=== PATIENT | female | born 1975 | race Caucasian/White ===

== ENCOUNTER 2021-04-26 14:34 | Emergency (ER) | payer BC, SELFPAY ==
[2021-04-26] MEDS: EPINEPHrine HCL INJ 1 MG/ML AMPUL 0.3 MG SUB-Q (14:48)
[2021-04-26] MEDS: methylPREDNISolone SOD SUCC 125 MG VIAL IV PUSH (14:51)
[2021-04-26 14:53] VITALS: BP 171/89; PULSE 116; RESP 24; TEMP 36.6; O2SAT 100
--- NOTE | 2021-04-26 15:06 | ED.GENADULT ---
HPI - General Adult General Chief complaint: Allergic Reaction Stated complaint: ALLERGIC REACTION Time Seen by Provider: 04/26/21 14:36 Source: patient Mode of arrival: ambulatory Limitations: no limitations History of Present Illness HPI narrative: 45 y/o female. PMH includes: None reported. Presents to [facility] today with acute complaints of possible allergic reaction to Randy seeds . Pt reports to have consumed food that was topped with Randy Seeds in the past 1/2 hour. She then states her tongue felt itchy , and she began to feel short of breath. She reports no additional known food allergens. She had taken 50 mg of oral Benadryl MANAGER ERP. No dysphagia or involuntary drooling. No wheezing or stridor. Client is on her cell phone, speaking in full fluent sentences at this time. She is without additional acute complaints of illness upon exam. Related Data Allergies Allergy/AdvReac Type Severity Reaction Status Date / Time hydrocodone Allergy Severe REACTION Verified 03/12/13 06:55 TO CODEINE ibuprofen Allergy Severe BLOTCHEY Verified 03/12/13 06:55 RED SPOTS codeine AdvReac Severe N/V Verified 03/12/13 06:55 ??NAUSEA MED Allergy Severe HALLUCINATI Uncoded 11/01/07 10:20 ONS ANESTHESIA? Allergy Severe MUSCLE Uncoded 11/01/07 10:20 TENSENESS, SPASMS YEAST INFECTION MED Allergy Severe WORSE VAG Uncoded 11/01/07 10:20 SWELLING Review of Systems Review of Systems: Narrative: CONSTITUTIONAL: Denies fever, chills, sweats. EYES: Denies visual changes, redness, discharge. ENT: Denies rhinorrhea, congestion, sore throat, otalgia. CARDIOVASCULAR: Denies chest pain, palpitations, edema. RESPIRATORY: Positive dyspnea. No wheezing or cough GASTROINTESTINAL: Denies abdominal pain, nausea, vomiting, diarrhea. GENITOURINARY: Denies dysuria, hematuria, abnormal discharge SKIN: Denies rash or itching. MUSCULOSKELETAL: Denies acute back pain, joint pain, or myalgia. NEUROLOGIC: Denies numbness, or focal weakness. PSYCHIATRIC: Denies anxiety or depression. All systems reviewed & are unremarkable except as noted in HPI and below Exam Narrative: Exam Narrative: GENERAL: This is a well-nourished, well-developed patient, in no apparent distress. HEAD: normocephalic, atraumatic. EYES: PERRL. Sclera clear/white. Vision is grossly intact. EARS: External ears normal, auditory canals clear and without drainage, TMs normal without perforation. Hearing grossly intact. NOSE: External nose normal with no obvious nasal discharge, nares without redness, no rhinorrhea. THROAT: Mucous membranes moist, posterior pharynx clear. NECK: Neck supple, non-tender without lymphadenopathy, masses or thyromegaly. CARDIOVASCULAR: Regular rate and rhythm without murmurs, gallops, or rubs. RESPIRATORY: Clear to auscultation. Breath sounds equal bilaterally. No wheezes, rales, or rhonchi. GASTROINTESTINAL: Abdomen soft, non-tender, nondistended. Bowel sounds are active. No hepato-splenomegaly, or palpable masses. No guarding. SKIN: warm, intact with no suspicious lesions or rash, good texture and turgor. NEURO: awake, alert, and oriented to person, place and time. There were no obvious focal neurologic abnormalities. Steady gait EXTREMITIES: Normal range of motion. No edema. No calf tenderness. Negative Homans sign bilaterally. BACK: Nontender without deformity or crepitance. No flank tenderness. NEURO: Alert and oriented x4, GCS 15. Cranial nerves II through XII grossly intact. No focal neurological deficits. Normal muscle strength and tone. Normal deep tendon reflexes. Negative Babinski, normal finger to nose coordination he had normal heel to mendez glide. Speech is clear. Normal gait. Negative Romberg and no pronator drift. Course Course Emergency Course: -IV Insertion. -Solumedrol 125 IV. -Epinephrine 0.3mg SQ. -Cardiac, oximetry, and airway monitoring continuous. -PT took 50 mg PO Benadryl MANAGER ERP. -Monitor progression and
--- NOTE | 2021-04-26 15:10 | PC.NURSE ---
At 1450 patient doing well. Heart rate is now 89. Sats continue to be 100%. Talks in full sentences. No resp. distress.
--- NOTE | 2021-04-26 15:14 | PC.NURSE ---
Continues to do well Heart rate 78 sats 100%. No distress.
--- NOTE | 2021-04-26 15:36 | PC.NURSE ---
Talking with friend. Full sentences. No SOB. Color good. No distress. Sats 100%
== END 2021-04-26 15:53 | disposition home or self-care (01) ==
PROVIDERS: Emergency Provider Nurse Practitioner Adult Health
DX: R06.02 Shortness of breath (principal); T78.1XXA Other adverse food reactions, not elsewhere classified, initial encounter
CPT/HCPCS: 96372; 96374; 99204; G0463; J0171; J2930

== ENCOUNTER 2023-12-14 01:37 | Day surgery (SDC) | payer BC, MEDICAID, SELFPAY ==
[2023-10-13 10:30] VITALS: BMI 33.5
--- NOTE | 2023-12-11 10:51 | SUR.PREOP ---
Patient called regarding upcoming procedure. Reviewed preop instructions, appointment times, and procedure prep.
--- NOTE | 2023-12-11 13:58 | PM.HPGS ---
History of Present Illness History of Present Illness Consent: Risks, benefits, and alternatives have been discussed and questions answered. Patient agrees to proceed with procedure. Chief complaint: neoplasm screening Narrative: Alley Merchant is a 48 year old female Referred for colon cancer screening. Review of Systems Review of Systems: All systems reviewed & are unremarkable except as noted in HPI and below PMFSH Surgical History Surgical History H/O breast biopsy 2020 stereotactic bx of rt breast negative H/O eye surgery xs 2 History of cholecystectomy History of tonsillectomy History of tubal ligation [place] teeth removed Family History Family History Father Hypertension Mother Hypertension Panic attack Grandparent Cerebrovascular accident Paget's disease of femur Family history of cancer Social History Social History Smoking status: Former smoker Tobacco type: cigarettes Alcohol intake: current Drinks per week: 2 Substance use type: does not use Living arrangements: with family Spiritual care concerns: No Meds Home Medications and Allergies Home Medications Medication Instructions Recorded Confirmed Type norethindrone 1 mg-ethinyl 1 tablet PO DAILY #84 tabs 04/30/22 11/17/23 Rx estradiol 20 mcg (21)-iron 75 mg (7) tablet (Loestrin Fe 11/21 (28-Day)) escitalopram oxalate 5 mg tablet 5 mg PO DAILY 10/13/23 11/17/23 History fexofenadine 180 mg tablet 180 mg PO DAILY 10/13/23 11/17/23 History (Allergy Relief (fexofenadine)) vitamin B complex 1 cap PO DAILY 10/13/23 11/17/23 History Allergies Allergy/AdvReac Type Severity Reaction Status Date / Time hydrocodone Allergy Severe REACTION Verified 11/17/23 10:55 TO CODEINE ibuprofen Allergy Severe BLOTCHEY Verified 11/17/23 10:55 RED SPOTS codeine AdvReac Severe N/V Verified 11/17/23 10:55 Latex, Natural Rubber AdvReac Rash Verified 11/17/23 10:55 ??NAUSEA MED Allergy Severe HALLUCINATI Uncoded 11/17/23 10:55 ONS ANESTHESIA? Allergy Severe MUSCLE Uncoded 11/17/23 10:55 TENSENESS, SPASMS YEAST INFECTION MED Allergy Severe WORSE VAG Uncoded 11/17/23 10:55 SWELLING lexis seed Allergy Anaphylaxis Uncoded 11/17/23 10:55 Exam Const: General: alert Orientation/consciousness: patient oriented x3 Resp: Auscultation: clear to auscultation bilaterally Cardio: Rhythm: regular rhythm GI: GI Palp: Yes Soft to palpation and No Tenderness to palpation present (GI) Neuro: General: patient oriented x3 Assessment and Plan Assessment and plan (1) Colon cancer screening: Code(s): Z12.11 - Encounter for screening for malignant neoplasm of colon Status: Acute Assessment and Plan: Colonoscopy with possible biopsy or polypectomy or cautery or injection of substances.
[2023-12-14 09:57] VITALS: BP 118/74; PULSE 80; RESP 17; TEMP 36.6; O2SAT 98
[2023-12-14] MEDS: LACTATED RINGERS 1,000 ML 150 ML IV CONT (10:08)
--- NOTE | 2023-12-14 10:30 | WPDANESEPPF ---
Anes - Initial Pre Proc Eval Procedure: Operation Date: 12/14/23 11:00 Proposed Procedures p Screening Colonoscopy - Mike Grissom MD Date/Time: 12/14/23 10:30 Surgeon: Mike Grissom MD Pre Op Diagnosis: neoplasm screening Patient Data Age: 48 Gender: F Height: 1.63 m Weight: 91.1 kg Last Vital Signs Temp 98 F 12/14/23 09:57 Pulse 80 12/14/23 09:57 Resp 17 12/14/23 09:57 BP 118/74 12/14/23 09:57 Pulse Ox 98 12/14/23 09:57 O2 Del Method Room Air 12/14/23 09:57 Allergies Allergy/AdvReac Type Severity Reaction Status Date / Time hydrocodone Allergy Severe REACTION Verified 11/17/23 10:55 TO CODEINE ibuprofen Allergy Severe BLOTCHEY Verified 11/17/23 10:55 RED SPOTS codeine AdvReac Severe N/V Verified 11/17/23 10:55 Latex, Natural Rubber AdvReac Rash Verified 11/17/23 10:55 ??NAUSEA MED Allergy Severe HALLUCINATI Uncoded 11/17/23 10:55 ONS ANESTHESIA? Allergy Severe MUSCLE Uncoded 11/17/23 10:55 TENSENESS, SPASMS YEAST INFECTION MED Allergy Severe WORSE VAG Uncoded 11/17/23 10:55 SWELLING lexis seed Allergy Anaphylaxis Uncoded 11/17/23 10:55 Home Medications Medication Instructions Recorded Confirmed Type norethindrone 1 mg-ethinyl 1 tablet PO DAILY #84 tabs 04/30/22 11/17/23 Rx estradiol 20 mcg (21)-iron 75 mg (7) tablet (Loestrin Fe 11/21 (28-Day)) escitalopram oxalate 5 mg tablet 5 mg PO DAILY 10/13/23 11/17/23 History fexofenadine 180 mg tablet 180 mg PO DAILY 10/13/23 11/17/23 History (Allergy Relief (fexofenadine)) vitamin B complex 1 cap PO DAILY 10/13/23 11/17/23 History Patient hx anesthesia problems: none Family hx anesthesia problems: none Results Review: All pre-operative results and documents have been reviewed as part of the pre-operative evaluation. [facility] Surgical History Surgical History (Updated 10/29/23 @ 08:19 by Yamileth Carter MA) H/O breast biopsy 2020 stereotactic bx of rt breast negative H/O eye surgery xs 2 History of cholecystectomy History of tonsillectomy History of tubal ligation [place] teeth removed Family History Family History (Updated 10/29/23 @ 08:16 by Yamileth Carter MA) Father Hypertension Mother Hypertension Panic attack Grandparent Cerebrovascular accident Paget's disease of femur Family history of cancer Social History Social History Smoking status: Former smoker Tobacco type: cigarettes Alcohol intake: current Drinks per week: 2 Substance use type: does not use Living arrangements: with family Spiritual care concerns: No Anes - Eval Final PreProcedure Day of Procedure 12/14/23 10:30 Patient weight: obese Heart: regular rate and rhythm Lungs: clear to auscultation Airway: Mallampati scale class II Neurological: alert and oriented Last oral intake: >/= 8 hours ASA classification: II Emergent: no Anesthetic plan: proceed Anesthesia type and monitoring: general GIVS and standard monitoring Results Review: All pre-operative results and documents have been reviewed as part of the pre-operative evaluation. Informed Consent: The patient's anesthetic plan and its attendant risks and benefits were discussed with the patient/family/POA. Questions were solicited and answers provided to the satisfaction of the patient/family/POA.
[2023-12-14 11:04] VITALS: BP 103/72; PULSE 79; RESP 20; O2SAT 97
[2023-12-14 11:14] VITALS: BP 114/75; PULSE 74; RESP 20; O2SAT 97
[2023-12-14 11:24] VITALS: BP 103/68; PULSE 84; RESP 20; O2SAT 97
== END 2023-12-14 11:34 | disposition home or self-care (01) ==
PROVIDERS: PCP Family Medicine; Visit Provider Internal Medicine Gastroenterology
PROC: 0DJD8ZZ Inspection of Lower Intestinal Tract, Via Natural or Artificial Opening Endoscopic (ICD-10-PCS; CPT 45378; principal; 2023-12-14 11:00)
DX: Z12.11 Encounter for screening for malignant neoplasm of colon (principal); E66.9 Obesity, unspecified; Z68.34 Body mass index [BMI] 34.0-34.9, adult; Z90.49 Acquired absence of other specified parts of digestive tract; Z98.890 Other specified postprocedural states; Z87.891 Personal history of nicotine dependence; Z82.49 Family history of ischemic heart disease and other diseases of the circulatory system; Z80.9 Family history of malignant neoplasm, unspecified
CPT/HCPCS: 45378; J2001; J2704; J7120

== ENCOUNTER → 2025-02-21 11:28 | Outpatient (REF) | payer BC, SELFPAY ==
--- OUTSIDE RECORDS SUMMARY | 2025-02-21 13:24 | XMS_ITS | Referral Summary ---
Author Organization [facility] Address [address] [place] [address] Care Team Providers Care Corrugator Operator Helper Name Role Phone Yennifer Francisco FOOD SAFETY SPECIALIST Primary Care Provider [phone] Helen Tompkins MD Unavailable [phone] Encounters Date Type Department Care Team Description 01/31/2025 Telephone [facility] [address] [address] Naheed Desai LPN 01/11/2025 Telephone [facility] Diabetes and Endocrinology [address] [place] [address] Nick Zuniga MD patient question 01/11/2025 Telephone [facility] Primary Care at [address] [address] Yennifer Francisco FOOD SAFETY SPECIALIST Medical Question/Miscellaneo us 12/09/2024 Telephone [facility] Primary Care at [address] [address] Yennifer Francisco, FOOD SAFETY SPECIALIST Forms Request 12/08/2024 Telephone [facility] Primary Care at [address] [address] Yennifer Francisco FOOD SAFETY SPECIALIST Forms Request 12/04/2024 10:45 AM CURING SUPERVISOR Office Visit [facility] Convenient Care at [address] [address] Ary Abel, AWA Acute left-sided low back pain without sciatica (Primary Dx); Acute viral syndrome from Last 3 Months Allergies Active Allergy Reactions Criticality Noted Date Comments Randy Seed Anaphylaxis High 07/28/2024 Codeine Nausea only,Vomiting Reaction: Nausea, Vomiting, , Flaxseed Stomach upset Low 07/28/2024 Fluconazole Swelling,Other (See comments) Reaction: swelling, pain, Ibuprofen Rash Medium Reaction: Rash, , Latex Rash Medium 04/14/2024 Metformin Nausea & Vomiting Low 04/25/2024 Miconazole Promethazine Other (See comments) Reaction: loopy head, Medications norethindrone ac-eth estradioL (MICROGESTIN 11/21) 1-20 mg-mcg per tablet TAKE 1 TABLET BY MOUTH DAILY CONTIUOUSLY Active fexofenadine (MARIBEL) 180 mg tablet Take 1 tablet (180 mg total) by mouth daily Active ergocalciferol, vitamin D2, 10 mcg (400 unit) tablet Take by mouth daily 9 Active multivitamin (MULTI-DAY ORAL) Take by mouth Active vitamin B complex with folic acid tablet Take by mouth daily Active lancets (OneTouch Delica Plus Lancet) 33 gauge misc USE DIRECTED DAILY 4 Active fluticasone propionate (FLONASE) 50 mcg/actuation nasal spray Administer 2 sprays into each nostril daily 3 each 4 4 Active Additional Information Patient not taking.Reported on 12/04/2024 escitalopram (LEXAPRO) 5 mg tablet Take 1 tablet (5 mg total) by mouth daily 90 tablet 3 4 Active azithromycin (ZITHROMAX) 250 mg tablet Take 2 tabs (500 mg) by mouth today, than 1 tab (250 mg) daily for 4 days. 6 tablet 4 Active Additional Information Patient not taking.Reported on 12/04/2024 blood-glucose sensor (Dekkuncom G7 Sensor) device Use for BG monitoring 3 each 5 Active Rybelsus 7 mg tabletIndicatio ns:Type 2 diabetes mellitus with hyperglycemia, without long-term current use of insulin (HCC) Take 1 tablet (7 mg total) by mouth daily 90 tablet 5 Active Active Problems Problem Noted Date Diagnosed Date Class 2 severe obesity due t o excess calories with serious comorbidity and body mass index (BMI) of 37.0 to 37.9 in adult 11/14/2024 Assessment & Plan (11/14/2024 4:16 PM CURING SUPERVISOR): Chronic, worsening Discussed about healthy lifestyle habits advise to work on healthy diet, avoid processed foods , increase vegetables and protein and cut back on carb portions and also avoid fruit juices and regular soda and desserts Increase physical activity , recommend at least 150 min of aerobic activity per week and include resistance training 2 x weekly - Rule out secondary causes of obesity - After the initial lab work will add low-dose dexamethasone suppression test Type 2 diabetes mellitus wit h hyperglycemia, without long-term current use of insulin 08/03/2024 Assessment & Plan (11/14/2024 4:16 PM CURING SUPERVISOR): Chronic, uncontrolled, slowly worsening Hemoglobin A1c 6.9% Goal A1c less than 6.5% Counseled on diet and exercise Advised to work on healthy fat loss goal Advised to see dietitian Patient willing to try oral GLP 1 agonist ( discussed mechanism of action, side effects benefits ) Start Rybelsus 3 mg oral daily ( patient does not want to go up on the dose very quickly ) Try to obtain patient's last eye exam copy Send prescription for freestyle Zoe 3 sensor Follow-up in 3 months Assessment & Plan (08/03/2024 7:45 AM CDT): This is a new problem that we discussed today. This is a chronic condition which is improved Is at goal for her age and health condition at less than 7 % Repeated A1c after office visit was down to 6.4% Personally reviewed most recent A1c - Lab Results Component Value Date HGBA1C 6.4 (H) 07/28/2024 Medication- we had a long discussion about medication options. She is not tolerated metformin in the past. We discussed Rybelsus, Ozempic and mounjaro. Patient is going to wait to discuss with endocrinology. Monitor blood sugar 0-1 times a day. Encouraged annual eye exam. Urine microalbumin/creatinine ratio - normal Is treated with SEN/ARB No Personally reviewed CMP GFR- Lab Results Component Value Date EGFR >60 06/29/2015 , Lab Results Component Value Date GFRNAA >90 05/10/2024 Kidney function- Normal Annual physical exam 08/03/2024 Assessment & Plan (08/03/2024 7:46 AM CDT): -Recommended: Healthy diet. Avoiding junk food/fast food. -30 minutes of exercise most days of the week. Increase to 45 minutes for weight loss. Health Maintenance reviewed - mammogram is ordered through [facility] care. Breast surgeon, Estephanie Ambrose MD -Influenza vaccine every year Recommend: - Topic Date Due Pneumococcal vaccine <65 (1 of 2 - PCV) Never done -F/u in 1 year for Annual PE or sooner if needed Encouraged to obtain eye exam Right foot pain 04/27/2024 Assessment & Plan (08/03/2024 7:44 AM CDT): Continue seeing Podiatry Assessment & Plan (04/27/2024 8:46 PM CDT): Plantars faciitis. Refer to podiatry. Discussed good foot care. Vitamin D deficiency 10/26/2023 Anxiety 08/17/2017 Assessment & Plan (08/03/2024 7:44 AM CDT): Chronic, improved. Continue escitalopram 5 mg once daily Assessment & Plan (04/27/2024 8:42 PM CDT): Stable. Currently on lexapro 5mg daily. Continue current medication. F/u 3 months for annual Resolved Problems Problem Noted Date Diagnosed Date Resolved Date Prediabetes 04/25/2024 08/03/2024 Assessment & Plan (04/27/2024 8:31 PM CDT): Previous records reviewed, highest hga1c was 6.1%. prediabetes, cannot find evidence of diabetes. Will order labs today. No pathologic diagnosis 03/18/201404/03 Overview (02/05/2017): No diagnosis Immunizations Immunization Administration Dates Next Due Hep A, Adult 02/25/2024,01/21/2012 Influenza, Quadrivalent, Rec ombinant, Egg Free, Preservative Free, Intramuscular 08/22/2023 Influenza, Quadrivalent, Spl it, Preservative Free, Intramuscular 08/18/2022,08/23/2021,08/12/2019,08/16 Influenza, Trivalent, Preser vative Free, Intramuscular 09/02/2016,07/31/2015 MMR 02/24/2018,01/26/2018 Tdap 11/24/2023,01/25/2016,01/21/2012 Typhoid Inactivated 01/07/2024 Social History Tobacco Use Types Packs/Day Years Used Date Smoking Tobacco: Former Smokeless Tobacco: Never Alcohol Use Standard Drinks/Week Comments Yes 0 (1 standard drink = 0.6 oz pur e alcohol) PHQ-2 Answer Date Recorded PHQ-2 Total Score (If total score is 3 or more points, staff should administer the PHQ-9) 0 07/28/2024 Comments No Sex and Gender Information Value Date Recorded Sex Assigned at Not on file Legal Sex Female 7:28 PM CURING SUPERVISOR Gender Identity Not on file Sexual Orientation Not on file Last Filed Vital Signs Vital Sign Reading Time Taken Comments Blood Pressure 125/90 12/04/2024 9:56 AM CURING SUPERVISOR Pulse 95 12/04/2024 9:56 AM CURING SUPERVISOR Temperature 37.3 C (99.2 F) 12/04/2024 9:56 AM CURING SUPERVISOR Respiratory Rate 14 12/04/2024 9:56 AM CURING SUPERVISOR Oxygen Saturation 96% 12/04/2024 9:56 AM CURING SUPERVISOR Inhaled Oxygen Concentration - - Weight 98.9 kg (218 lb) 12/04/2024 9:56 AM CURING SUPERVISOR Height 162.6 cm (5' 4 ) 12/04/2024 9:56 AM CURING SUPERVISOR Body Mass Index 37.42 12/04/2024 9:56 AM CURING SUPERVISOR Plan of Treatment Not on file Procedures Procedure Name Priority Date/Time Associated Diagnosis Comments POC INFLUENZA A/B, COVID-19 ANTIGEN Routine 12/04/2024 10:38 AM CURING SUPERVISOR Acute viral syndrome POCT HEMOGLOBIN A1C Routine 11/14/2024 2 :36 PM CURING SUPERVISOR Type 2 diabetes mellitus with hyperglycemia, without long-term current use of insulin (HCC) HM DIABETES EYE EXAM Routine 08/17/2024 8:48 AM CDT ALBUMIN CREATININE RATIO, URINE Routine 07/28/2024 3:43 PM CDT Controlled type 2 diabetes mellitus without complication, without long-term current use of insulin (HCC) EGFR Routine 05/10/2024 7:59 AM CDT Prediabetes LIPID PANEL Routine 05/10/2024 7:59 AM CDT Lipid screening THINPREP BRAZER REPAIR AND SALVAGE PAP (IMAGE GUIDED) LIQUID-BASED PREP Routine 11/17/2017 4:40 PM CURING SUPERVISOR SERUM HEPATITIS C AB Routine 07/10/2015 10:16 AM CDT from Last 3 Months or Most Recently Relevant to Health Maintenance Results * POC Influenza A/B, COVID-19 antigen (12/04/2024 10:38 AM CURING SUPERVISOR) Influenza A Ag, POC Negative Negative [facility] Influenza B Ag, POC Negative Negative [facility] COVID-19 Ag POC Presumptive Negative Presumptive Negative, Invalid [facility] Nasal 12/04/2024 10:3 8 AM CURING SUPERVISOR us Ary Abel NP POINT OF CARE TEST ORDERAB LES Final Result Performing Organization Address City/State/[facility] Co de Phone Number [facility] [address] [place] [address] * POCT hemoglobin A1c (11/14/2024 2:36 PM CURING SUPERVISOR) Hemoglobin A1C, POC 6.9 4.0 - 5.6 % Blood 11/14/2024 2:36 PM CURING SUPERVISOR us Nick Galeana MD POINT OF CARE TEST ORDERABLES Final Result * (ABNORMAL) DIABETES EYE EXAM (08/17/2024 8:48 AM CDT) Historical Provider HEALTH MAINTENANCE Final Result * Albumin Creatinine Ratio, Urine (07/28/2024 3:43 PM CDT) Albumin Ur <12.0 mg/L Comment: Interpretive Data No reference range established. Current interpretive data was last revised 2019. Creatinine Ur 106.7 mg/dL [facility] Comment: Interpretive Data No reference range established. Current interpretive data was last revised 2019. Albumin Creatinine Ratio, Ur <11 1 - 29 mg/g [facility] Urine 07/28/2024 3:43 PM CDT 07/28/2024 7:46 PM CDT Yennifer Francisco NP LAB URINE ORDERABLES Final Re sult [facility] [address] [facility] [place] [address] * eGFR (05/10/2024 7:59 AM CDT) eGFR >90 >=60 mL/min/1. 73 m2 Comment: Interpretive Data Reference Interval Normal >/= 90 mL/min/1.73m2 Mildly decreased* 60 - 89 mL/min/1.73m2 Mildly to moderately decreased 45 - 59 mL/min/1.73m2 Moderately to severely decreased 30 - 44 mL/min/1.73m2 Severely decreased 15 - 29 mL/min/1.73m2 Kidney Failure < 15 mL/min/1.73m2 *Relative to young adult level Estimated glomerular filtration rate is determined by the 2020 CKD-EPI equation recommended by the National Kidney Foundation (A Unifying Approach to GFR Estimation: Recommendations of the NKF-ASK Task Force on Reassessing the Inclusion of Race in Diagnosing Kidney Disease, JASN 202). The CKD-EPI equation should not be used for patients with unstable renal function and has not been validated in children and those over 70. Current interpretive data was last reviewed 2021. Blood 05/10/2024 7:59 AM CDT 05/10/2024 2:41 PM CDT Yennifer JoeEvelin Francisco NP LAB BLOOD ORDERABLES Final Re sult [facility] [address] [facility] [place] [address] * Lipid panel (05/10/2024 7:59 AM CDT) Cholesterol 162 30 - 199 mg/dL Comment: Interpretive Data Ages < or = 19 years Acceptable: <170 mg/dL Borderline high: 170-199 mg/dL High: >or= 200 mg/dL Ages > or = 20 years Desirable: <200 mg/dL Borderline high: 200-239 mg/dL High: >or= 240 mg/dL Literature References: 1. Expert Panel on Integrated Guidelines for Cardiovascular Health and Risk Reduction in Children and Adolescents. Pediatrics 2011;128:S213 2. NCEP Expert Panel. Circulation 2004;110:227 Current Interpretive Data was last revised on 2018. Triglycerides 71 <=149 mg/dL [facility] Comment: Interpretive Data Ages < or = 9 years Acceptable: <75 mg/dL Borderline high: 75-99 mg/dL High: >or= 100 mg/dL Ages 10 to 20 years Acceptable: <90 mg/dL Borderline high: 90-129 mg/dL High: >or= 130 mg/dL Ages > or = 20 years Desirable: <150 mg/dL Borderline high: 150-199 mg/dL High: 200-499 mg/dL Very high: >or= 499 mg/dL Literature References: 1. Expert Panel on Integrated Guidelines for Cardiovascular Health and Risk Reduction in Children and Adolescents. Pediatrics 2011;128:S213 2. NCEP Expert Panel. Circulation 2004;110:227 Current Interpretive Data was last revised on 2018. HDL 51 >=40 mg/dL [facility] Comment: Interpretive Data Ages < or = 19 years Acceptable: >45 mg/dL Borderline low: 40-45 mg/dL Low: <40 mg/dL Ages > or = 20 years Desirable: >or= 60 mg/dL Low: <40 mg/dL Literature References: 1. Expert Panel on Integrated Guidelines for Cardiovascular Health and Risk Reduction in Children and Adolescents. Pediatrics 2011;128:S213 2. NCEP Expert Panel. Circulation 2004;110:227 Current Interpretive Data was last revised on 2018. LDL, calculated 97 <=129 mg/dL [facility] Comment: Interpretive Data Ages < or = 19 years Acceptable: <110 mg/dL Borderline high: 110-129 mg/dL High: >or= 130 mg/dL Ages > or = 20 years Optimal: <100 mg/dL Near optimal: 100-129 mg/dL Borderline high: 130-159 mg/dL High: >160 mg/dL Literature References: 1. Expert Panel on Integrated Guidelines for Cardiovascular Health and Risk Reduction in Children and Adolescents. Pediatrics 2011;128:S213 2. NCEP Expert Panel. Circulation 2004;110:227 Current Interpretive Data was last revised on 2018. Non-HDL Cholesterol 111 mg/dL [facility] Comment: Interpretive Data Ages < or = 19 years Acceptable: <120 mg/dL Borderline high: 120-144 mg/dL High: >145 mg/dL Ages > or = 20 years When triglycerides are >200 mg/dL, Non-HDL cholesterol is a secondary target of therapy with treatment goals that are 30 mg/dL greater than the LDL cholesterol target. Literature References: 1. Expert Panel on Integrated Guidelines for Cardiovascular Health and Risk Reduction in Children and Adolescents. Pediatrics 2011;128:S213 2. NCEP Expert Panel. Circulation 2004;110:227 Current Interpretive Data was last revised on 2018. Chol/HDL ratio 3 [facility] Blood 05/10/2024 7:59 AM CDT 05/10/2024 2:37 PM CDT Yennifer Francisco FOOD SAFETY SPECIALIST LAB BLOOD ORDERABLES Final Re sult [facility] [address] Department [place] [address] * ThinPrep Gynecologic Pap Test (Image-guided), Liquid-based Preparation (11/17/2017 4:40 PM CURING SUPERVISOR) Report status CANCELED [facility] [place] Comment:Result canceled by t he ancillary CLINICAL INFORMATION: [facility] Comment:Information not prov ided LMP [facility] [place] Comment:INFORMATION NOT PROV IDED Previous Pap [facility] [place] Comment:INFORMATION NOT PROV IDED Prev. Bx [facility] Comment:INFORMATION NOT PROV IDED SOURCE: [facility] Comment:Information not prov ided Pap, specimen adequacy [facility] Comment: Satisfactory for evaluation. Endocervical/transformation zone component present. Age and/or menstrual status not provided Pap, general categorization [facility]CELED [facility] Comment:Result canceled by t he ancillary HPV interp [facility] [place] Comment:Negative for intraep ithelial lesion or malignancy. Infection: [facility]CELED [facility] [place] Comment:Result canceled by t he ancillary COMMENTS [facility] [place] Comment: This Pap test has been evaluated with computer assisted technology. [facility] [place] Comment: MLO, CT(ASCP) CT screening location: [place] [address] [place] [address] Review cream dipper CANCELED [facility] [place] Comment:Result canceled by t he ancillary Pathologist [facility] [place] Comment:Result canceled by t he ancillary 11/17/2017 4:40 PM CURING SUPERVISOR 11/18/2017 5:48 AM CURING SUPERVISOR Narrative Resulting Agency Comment Performing Organization Information: Site ID: Name: [facility] Address: [facility] [place] [address] Director: Aarti Gonzalez MD Evelio Patel MD LAB PATHOLOGY ORDERABLES F inal Result [facility] - [place], [place] * Serum Hepatitis C ab (07/10/2015 10:16 AM CDT) HCV ab NON-REACTI VE NON-REACTI VE HISTORICAL RESULTS Hepatitis signal to cutoff ratio 0.02 <1.00 HISTORICAL RESULTS Serum 07/10/2015 10:1 6 AM CDT Narrative HISTORICAL RESULTS - 07/16/2015 10:00 AM CDT Test performed at [facility] [address] [place] [address] Director: ANAMARIA GARCIA DO,MPH Historical Provider LAB BLOOD ORDERABLES Marie bo Result HISTORICAL RESULTS from Last 3 Months or Most Recently Relevant to Health Maintenance Insurance [facility] Care Teams Corrugator Operator Helper Relationship Specialty Start Date End Date Yennifer Francisco NP PCP - General Family Medicine 04/25/24 Helen Tompkins MD [address] [place] [address] Obstetrics and Gynecology 09/20/24
--- OUTSIDE RECORDS SUMMARY | 2025-02-21 13:24 | XMS_ITS | Encounter Summary ---
Author Organization [facility] Healthcare Address [address] [place] [address] Care Team Providers Care Mattress Weaver Name Role Phone Yennifer Francisco NP Primary Care Provider [phone] Helen Tompkins MD Unavailable [phone] Reason for Visit * Reason Onset Date Comments Referral Request 05/18/2024 Encounter Details Date Type Department Care Team (Late st Contact Info) Description 05/18/2024 Telephone [facility] Primary Care at [address] [address] Yennifer Francisco NP [address] [place] [address] Referral Request Social History Tobacco Use Types Packs/Day Years Used Date Smoking Tobacco: Former Smokeless Tobacco: Never Alcohol Use Standard Drinks/Week Comments Yes 0 (1 standard drink = 0.6 oz pur e alcohol) PHQ-2 Answer Date Recorded PHQ-2 Total Score (If total score is 3 or more points, staff should administer the PHQ-9) 0 04/25/2024 Comments No Sex and Gender Information Value Date Recorded Sex Assigned at Not on file Legal Sex Female 7:28 PM ROOFER ASSISTANT Gender Identity Not on file Sexual Orientation Not on file documented as of this encounter Miscellaneous Notes * Telephone Encounter - Yennifer Francisco NP - 05/18/2024 10:29 AM CDT Referral placed for Dr. Galeana for diabetes * Telephone Encounter - Tiana Foreman - 05/18/2024 9:40 AM CDT Referral Provider Name (if patient is seeing a nurse practitioner or physician sales assistant entertainment and media, list the MANAGER INVENTORY CONTROL/PA, but also their collaborating doctor): Dr. Kacey Oseguera Specialty: Endocrinology Address: [address] [facility] [address] [facility], Zip: [place] [address] prompt 2, opt 3 Diagnosis Code/Symptom/Reason Patient is being seen: A1c in diabetic range, would like hormones tested and evaluation to assess possible diabetes Date of Appointment: TBD - patient would need referral in order to schedule NPI#: [id number] Tax ID#: Did not have Is insurance in chart up to date? Yes Additional Comments: Patient states she just spoke with practice regarding her results and would like to see an Clinical Rehabilitation Specialist to discuss further evaluations/management. Patient states she would like her thyroid and hormones to be evaluated by endocrinology as well. Patient states she would like to see Dr. Kacey Oseguera as she prefers an M.D. Please notify patient once referral sent so she may contact their office to schedule. Does message need to be routed? Yes-Action Needed documented in this encounter Plan of Treatment Not on file documented as of this encounter Visit Diagnoses Not on filedocumented in this encounter Additional Health Concerns Infection Onset Date Last Indicated Resolved Time COVID: Suspected 12/04/2024 12/04/2024 12/04/2024 1:31 PM ROOFER ASSISTANT documented as of this encounter Care Teams Mattress Weaver Relationship Specialty Start Date End Date Yennifer Francisco NP PCP - General Family Medicine 04/25/24 Helen Tompkins MD [address] [place] [address] Obstetrics and Gynecology 09/20/24 documented as of this encounter
--- OUTSIDE RECORDS SUMMARY | 2025-02-21 13:24 | XMS_ITS | Clinical Summary ---
Author Organization [facility] Address [address] [place] [address] Care Team Providers Care Fibreglass Lay Up Worker Name Role Phone Sabiha Birmingham MD Primary Care Provider Allergies Active Allergy Reactions Criticality Noted Date Comments Codeine Nausea and Vomiting,Unknown Low 01/21/2018 Reaction: Nausea, Vomiting, , Fluconazole Other (See Comments),Swelling Low Ibuprofen Rash Low Ibuprofen (Bulk) Other (See Comments) Low 8 Red spots Red spots Latex Other (See Comments) 08/08/2016 Miconazole Other (See Comments),Swelling Low 08/08/2016 Promethazine Other (See Comments) Reaction: loopy head, Medications Multivitamin Capsule Take by mouth. Active Valerian Root 100 mg Capsule Take by mouth. Active ergocalciferol (VITAMIN D2) 50,000 unit capsule TK 1 C PO Q WK 0 02/07/2019 Active multivitamin (MULTIPLE VITAMINS ORAL) Take by mouth. Active valerian root, bulk, Powder Take by mouth. Active Active Problems Problem Noted Date Diagnosed Date Lump of left breast 10/13/2018 Lump of right breast 10/13/2018 Nonpurulent mastitis, 10/13/2018 Abnormal mammogram 07/13/2018 Abnormal ultrasound of breast 07/13/2018 Family History Medical History Relation Name Comments Cancer Paternal Grandfather prostat e - at 92 Ovarian Cancer Paternal Grandmother alive at 94 Relation Name Status Comments Paternal Grandfather Paternal Grandmother Alive Social History Tobacco Use Types Packs/Day Years Used Date Smoking Tobacco: Former Cigarettes 0.3 15 0 04/02/1996 - 04/02/2011 Smokeless Tobacco: Never Alcohol Use Standard Drinks/Week Comments Yes 0 (1 standard drink = 0.6 oz pur e alcohol) occasional Comments No Sex and Gender Information Value Date Recorded Sex Assigned at Not on file Legal Sex Female 9:28 AM CDT Gender Identity Not on file Sexual Orientation Not on file Last Filed Vital Signs Vital Sign Reading Time Taken Comments Blood Pressure 119/82 08/11/2019 3:38 PM CDT Pulse 82 08/11/2019 3:38 PM CDT Temperature 37.2 C (98.9 F) 08/11/2019 3:38 PM CDT Respiratory Rate - - Oxygen Saturation 98% 08/11/2019 3:38 PM CDT Inhaled Oxygen Concentration - - Weight 84.4 kg (186 lb 1.6 oz) 08/11/2019 3:38 P M CDT Height 162.6 cm (5' 4 ) 08/11/2019 3:38 PM CDT Body Mass Index 31.94 08/11/2019 3:38 PM CDT Plan of Treatment Health Maintenance Due Date Last Done Comments DTAP/TDAP/TD VACCINES (1 - Tdap) 1995 HEPATITIS B VACCINES (1 of 3 - 19+ 3-dose series) 1995 HPV/Cotest (21-29) 1997 CERVICAL CANCER SCREENING 2006 HPV/Cotest (30-65) 2006 PAP SMEAR 2006 BREAST CANCER SCREENING 06/27/2020 06/27/20 19, 07/01/2018, 06/08/2018 COLORECTAL SCREENING 2021 Colorectal Cancer Screening 2021 FIT-DNA Q 3 years 2021 FIT/FOBT Q 1 year 2021 Flex Sig/CT Colonography Q 5 years 2021 INFLUENZA VACCINE (#1) 2024 Procedures Procedure Name Priority Date/Time Associated Diagnosis Comments MAMMO DIAGNOSTIC UNI RIGHT W OR WO CAD Routine 07/01/2018 from Last 3 Months or Most Recently Relevant to Health Maintenance Results * MAMMO DIAGNOSTIC UNI RIGHT W OR WO CAD (07/01/2018) Anatomical Region Laterality Modality Breast Right Mammography us Abstract Provider MAMMO ORDERABLES Final Result from Last 3 Months or Most Recently Relevant to Health Maintenance Insurance [employer] [place] Care Teams Fibreglass Lay Up Worker Relationship Specialty Start Date End Date Sabiha Birmingham MD PCP - General Family Practice 07/13/18
--- OUTSIDE RECORDS SUMMARY | 2025-02-21 13:24 | XMS_ITS | Clinical Summary ---
Author Organization [facility] Address [address] [place] [address] Care Team Providers Care Marine Driller Name Role Phone Sabiha Birmingham MD Primary Care Provider [phone] Source Comments [facility],non-owned Affiliates and Associated Physician Practices is amultiple site organization consisting of ambulatory clinics and hospital sitesin [place], [place], [place] and [place]. This disclosure is being madepursuant to the Care Everywhere program and may not contain all information available regarding this patient. Last updated 18.[facility] Allergies Active Allergy Reactions Criticality Noted Date Comments Codeine Nausea and/or Vomiting Low 01/21/2018 Codeine Nausea and/or Vomiting Low 01/21/2018 Enovarx-Ibuprofen Other Low 01/21/2018 Red spots Latex Other 08/08/2016 Miconazole Swelling 08/08/2016 Medications * Be aware that medications may not be up to date on this document. Alwaysverify current medications with the patient. Multiple Vitamins-Minera ls (MULTIVITAMIN & MINERAL PO) Active VALERIAN PO Active escitalopram (Lexapro) 5 MG tablet Take 1 (one) tablet by mouth once daily 4 Active fexofenadine (Emma) 180 MG tablet Take 1 (one) tablet by mouth once daily Active norethindrone-e thinyl estradiol (Loestrin 11/21) 1-20 MG-MCG tablet TAKE 1 TABLET BY MOUTH DAILY CONTIUOUSLY 4 Active B Xweyeza-O-Myfcr Acid (vitamin B complex with C) Take by mouth once daily Active vitamin D3 (Cholecalcifero l) 10 MCG (400 UNIT) tablet Take 0.2-5 tablets by mouth once daily Active Active Problems Problem Noted Date Diagnosed Date Other viral warts 07/08/2018 Family History Medical History Relation Name Comments Cancer - Colon Maternal Grandmother Cancer - Skin, Non Melanoma Maternal Grandmother Cancer Maternal Uncle a ge 67, unknown cancer Cancer - Thyroid Paternal Cousin Cancer - Other Paternal Grandfather Cancer - Prostate Paternal Grandfather ag e 62 Cancer - Ovarian Paternal Grandmother age 59 Asthma Neg Hx CVA Neg Hx Cancer - Breast Neg Hx Cancer - Skin, Melanoma Neg Hx Eczema Neg Hx Hemophilia Neg Hx Psoriasis Neg Hx Relation Name Status Comments Maternal Grandmother Maternal Uncle Alive Paternal Cousin Other Paternal Grandfather prostat e cancer Paternal Grandmother Social History Tobacco Use Types Packs/Day Years Used Date Smoking Tobacco: Former Smokeless Tobacco: Never Tobacco Cessation:Counseling Given: Not Answered Alcohol Use Standard Drinks/Week Comments Yes 0 (1 standard drink = 0.6 oz pur e alcohol) Comments No Sex and Gender Information Value Date Recorded Sex Assigned at Not on file Legal 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[employer] Gender Identity Not on file Sexual Orientation Not on file Last Filed Vital Signs Vital Sign Reading Time Taken Comments Blood Pressure 130/88 11/03/2024 12:38 PM [employer] Pulse 80 11/03/2024 12:38 PM [employer] Temperature 36.1 C (97 F) 11/03/2024 12:38 PM [employer] Respiratory Rate - - Oxygen Saturation 96% 11/03/2024 12:38 PM [employer] Inhaled Oxygen Concentration - - Weight 95.7 kg (211 lb) 11/03/2024 12:38 PM [employer] Height 162.6 cm (5' 4 ) 11/03/2024 12:38 PM [employer] Body Mass Index 36.22 11/03/2024 12:38 PM [employer] Plan of Treatment Upcoming Encounters Date Type Department Care Team (Late st Contact Info) Description 04/13/2025 10:00 AM CDT Hospital Encounter [facility] [address] [place] [address] Natalia Ambrose MD [address] [place] [address] 04/13/2025 11:00 AM CDT Appointment [facility] [address] [place] [address] Natalia Ambrose MD [address] [place] [address] 04/13/2025 11:30 AM CDT Office Visit [facility] - General Surgery [address] [place] [id number] Natalia Ambrose MD [address] [place] [address] Health Maintenance Due Date Last Done Comments COLOGUARD (AGES 45-75) - COLON CA SCREENING 1976 COLON MONITORING 1976 COLONOSCOPY - COLON CA SCREENING 1976 CT COLONOGRAPHY - COLON CA SCREENING 1976 Colorectal Cancer Screening 1976 FIT - COLON CA SCREENING 1976 FLEX SIG - COLON CA SCREENING 1976 LIPID TESTING 1976 PAP SMEAR 1976 HIV SCREENING 1991 HEPATITIS C SCREENING 09/11/1994 DTAP/TDAP/TD VACCINES (1 - Tdap) 1995 HEPATITIS B VACCINE (1 of 3 - 19+ 3-dose series) 1995 SCREENING FOR DIABETES 02/15/2024 COVID-19 VACCINE (2 - season) 2024 01/30/2021 DEPRESSION SCREENING 11/02/2024 INFLUENZA VACCINE (Season Ended) 2025 08/22/2023, 08/18/2022, 08/23/2021, Additional history exists ZOSTER VACCINE (1 of 2) 2026 MAMMOGRAM 11/03/2026 11/03/2024, 12/2024, 07/17/2023, Additional history exists HIB VACCINE Aged Out No longer eligi ble based on patient's age to complete this topic HPV VACCINE Aged Out No longer eligi ble based on patient's age to complete this topic MENINGOCOCCAL (Group B) VACCINE SHARED DECISION-MAKING Aged Out No longer eligible based on patient's age to complete this topic MENINGOCOCCAL GROUPS A/C/Y/W VACCINE Aged Out No longer eligible based on patient's age to complete this topic PNEUMOCOCCAL VACCINE Aged Out No long er eligible based on patient's age to complete this topic Medical Devices Implanted Type Area Trapper Animal Device Identifier Shelf Expiration Date Model / Serial / Lot Mrkr Rgd End Dpl Dlv Sys Clip Securmark Implanted:Qty: 1 on 06/06/2021 at [facility] Right: Breast Hologic 03/28/2022 SMARK-EVIVA -[id number] Procedures Procedure Name Priority Date/Time Associated Diagnosis Comments MAMMO BILAT SCREENING W SERGIO Routine 11/03/2024 8:55 AM [employer] Increased risk of breast cancer from Last 3 Months or Most Recently Relevant to Health Maintenance Results * MAMMO BILAT SCREENING W SERGIO (11/03/2024 8:55 AM [employer]) Anatomical Region Laterality Modality Breast Bilateral Mammography 11/03/2024 8:51 AM [employer] Impressions 11/03/2024 9:45 AM [employer] IMPRESSION: 1. A group of microcalcifications in the superior right breast posterior depth warrants further evaluation. 2. A group of microcalcifications in the slightly superior medial left breast posterior depth warrants further evaluation. 3. A group of microcalcifications in the far lateral posterior left breast RECOMMENDATION: Bilateral diagnostic mammography will be performed today. OVERALL ASSESSMENT: BI-RADS CATEGORY 0: INCOMPLETE: NEED ADDITIONAL IMAGING EVALUATION. Report drafted by Lidia Brock MD (orthodontist vice president). I, Luz Gonzalez MD have personally reviewed and interpreted this examination/study. > Interpreting Provider: Luz Gonzalez MD on 11/03/2024 9:45 AM Narrative 11/03/2024 9:45 AM [employer] EXAMINATIONS: BILATERAL DIGITAL SCREENING MAMMOGRAM AND BILATERAL BREAST TOMOSYNTHESIS LOCATION: [facility] EXAM DATE: 11/03/2024 HISTORY: Screening. Family history of ovarian cancer in paternal grandmother at the age of 59. History of benign right breast biopsy. RISK ASSESSMENT CALCULATION: Patient completed a breast cancer risk assessment during her appointment 11/03/2024. Based upon the information she provided and her mammographic breast density, her lifetime risk of developing breast cancer is 28 % (Average Risk <15%; Intermediate / Moderate Risk 15-19%; High Risk > 20%). Given the elevated lifetime risk of breast cancer greater than 20%, consultation in the [facility] is recommended. The phone number is [phone]. The [place] [employer] recommends annual screening breast MRI in addition to mammograms for women who have a 20% or greater lifetime risk of developing breast cancer. This can be managed through the high risk breast clinic. Risk assessment based upon the Tyrer-Cuzick v8 model. By the NCCN guidelines and family history of ovarian cancer, consideration of genetic testing is recommended, if not already performed. COMPARISON: Comparison is made to prior breast imaging back to 2019. TECHNIQUE: Tomosynthesis (3D) and reconstructed synthetic 2-D images acquired and reviewed in the bilateral craniocaudal and mediolateral oblique projections. A total of 6 images obtained. Transpara AI was utilized in the interpretation. BREAST PARENCHYMAL COMPOSITION: Category D: The breasts are extremely dense which lowers the sensitivity of mammography. FINDINGS: Right breast: There is a group of microcalcifications in the superior breast posterior depth 12 cm from the nipple on the MLO view, spanning 1.4 cm. These may represent vascular calcifications however further evaluation is warranted. Left breast: There is a group of microcalcifications in the slightly superior medial breast posterior depth 13 cm from the nipple on the MLO view, spanning 0.7 cm. There is a second smaller group in the far posterior lateral breast on the exaggerated craniocaudal lateral view. Stable benign appearing masses are present bilaterally. Natalia Ambrose MD MAMMO ORDERABLES Final Resu lt from Last 3 Months or Most Recently Relevant to Health Maintenance Insurance [employer] Care Teams Marine Driller Relationship Specialty Start Date End Date Sabiha Birmingham MD [address] [place] [address] PCP - General 01/21/18
--- OUTSIDE RECORDS SUMMARY | 2025-02-21 13:24 | XMS_ITS | Clinical Summary ---
Author Organization [facility] Address [address] [place] [address] Phone Care Team Providers Care Gas Station Manager Name Role Phone Turner Dover Primary Care Provider Luis Mckeon DPM Unavailable [phone] Allergies Active Allergy Reactions Criticality Noted Date Comments Ibuprofen Rash 08/08/2016 Codeine Vomiting 08/08/2016 Severe Latex Other (see Comments) 08/08/2016 Miconazole Swelling 08/08/2016 Medications No known medications Active Problems Problem Noted Date Diagnosed Date Paronychia of great toe, left 08/08/2016 Gastrocnemius equinus of right lower extremity 1 Heel spur 08/08/2016 Plantar fasciitis, right 08/08/2016 Social History Tobacco Use Types Packs/Day Years Used Date Smoking Tobacco: Former Cigarettes Smokeless Tobacco: Never Tobacco Cessation:Counseling Given: Yes Alcohol Use Standard Drinks/Week Comments Yes 0 (1 standard drink = 0.6 oz pur e alcohol) occasionally Comments No Sex and Gender Information Value Date Recorded Sex Assigned at Not on file Legal Sex Female 10:23 PM CDT Gender Identity Not on file Sexual Orientation Not on file Last Filed Vital Signs Vital Sign Reading Time Taken Comments Blood Pressure 104/70 08/22/2016 11:04 AM CDT Pulse 87 08/22/2016 11:04 AM CDT Temperature 35.9 C (96.7 F) 08/22/2016 11:04 AM CDT Respiratory Rate 16 08/22/2016 11:04 AM CDT Oxygen Saturation 99% 08/22/2016 11:04 AM CDT Inhaled Oxygen Concentration - - Weight 74.4 kg (164 lb) 08/22/2016 11:04 AM CDT Height 162.6 cm (5' 4 ) 08/22/2016 11:04 AM CDT Body Mass Index 28.15 08/22/2016 11:04 AM CDT Plan of Treatment Health Maintenance Due Date Last Done Comments Hepatitis C Virus (HCV) Screening 1976 TdaP Immunization 1976 Hepatitis B Immunization (1 of 3 - 19+ 3-dose series) 1995 Pap Smear 1997 Cervical Cancer Screening (CCS) 2006 HPV/Cotest 2006 Discussion re Starting/Frequ ency of Mammograms 2016 Colonoscopy 2021 Colorectal Cancer Screening 2021 Influenza Immunization (#1) 2024 SARS-COV-2 Immunization () 07/03/2024 Respiratory Syncytial Virus (RSV) Immunization (Adult) (1 - 1-dose 75+ series) 2051 Meningococcal Immunization (ACWY) Aged Out No longer eligible based on patient's age to complete this topic Pneumococcal Immunization Combined Aged Out No longer eligible based on patient's age to complete this topic Rotavirus Immunization Aged Out No lo nger eligible based on patient's age to complete this topic Insurance [place] Care Teams Gas Station Manager Relationship Specialty Start Date End Date Turner Dover PAC [address] [place] [address] PCP - General Physician Demurrage Worker 08/06/16 Luis Mckeon DPM [address] [place] [address] Consulting Physician Podiatry 08/06/16
--- OUTSIDE RECORDS SUMMARY | 2025-02-21 13:24 | XMS_ITS | Clinical Summary ---
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 Gender Identity Not on file Sexual Orientation Not on file Last Filed Vital Signs Vital Sign Reading Time Taken Comments Blood Pressure - - Pulse - - Temperature - - Respiratory Rate - - Oxygen Saturation - - Inhaled Oxygen Concentration - - Weight 81.6 kg (180 lb) 02/08/2016 12:11 PM CDT Height 162.6 cm (5' 4 ) 02/08/2016 12:11 PM CDT Body Mass Index 30.9 02/08/2016 12:11 PM CDT Plan of Treatment Health Maintenance Due Date Last Done Comments Cervical Cancer Screening Pa p Smear (Age 30 to 64) Every 3 Years 1976 Colorectal Cancer Screening Colonoscopy (10 Years) 1976 Annual Physical 1979 Hepatitis C 1994 DTaP, Tdap and Td Vaccines ( 1 - Tdap) 1995 Hepatitis B Vaccines (1 of 3 - 19+ 3-dose series) 1995 Cervical Cancer Screening Pa p with HPV Testing (Age 30 to 64) Every 5 Years 2006 Cervical Cancer Screening with HPV 2006 Mammogram Screening 2016 COVID-19 Vaccine ( - 2023-2 5 season) 2024 Meningococcal B Vaccine Aged Out No l onger eligible based on patient's age to complete this topic Meningococcal Vaccine Aged Out No kyle lazara eligible based on patient's age to complete this topic Pneumococcal Vaccine: Pediat rics (0 to 5 Years) and At-Risk Patients (6 to 49 Years) Aged Out No longer eligible b ased on patient's age to complete this topic RSV Immunizations Under 20 Months Aged Out No longer eligible based on patient's age to complete this topic
--- OUTSIDE RECORDS SUMMARY | 2025-02-21 13:24 | XMS_ITS | Clinical Summary ---
Author Organization [facility] Address [address] [place] [address] Care Team Providers Care Litigation Assistant Name Role Phone Yennifer Francisco NP Primary Care Provider [phone] Helen Tompkins MD Unavailable [phone] Allergies Active Allergy Reactions Criticality Noted Date [...] Patient not taking.Reported on 12/04/2024 blood-glucose sensor (Dexcom G7 Sensor) device Use for BG monitoring [...] 11/14/2024 Assessment & Plan (11/14/2024 4:16 PM PICKING MACHINE OPERATOR HELPER): Chronic, worsening Discussed about healthy lifestyle habits [...] 08/03/2024 Assessment & Plan (11/14/2024 4:16 PM PICKING MACHINE OPERATOR HELPER): Chronic, uncontrolled, slowly worsening Hemoglobin A1c 6.9% [...] Maintenance reviewed - mammogram is ordered through [facility] care. Breast surgeon, Estephanie Ambrose MD -Influenza [...] pathologic diagnosis 03/18/201404/03 Overview (02/05/2017): No diagnosis Encounters Date Type Department Care Team Description 01/31/2025 Telephone [facility] [address] [phone] Naheed Desai LPN 01/11/2025 Telephone [facility] Diabetes and Endocrinology [address] [place] [phone] Nick Zuniga MD patient question 01/11/2025 Telephone [facility] at [address] [phone] Yennifer Francisco NP Medical Question/Miscellaneo us 12/09/2024 Telephone [facility] at [address] [phone] Yennifer Francisco, STEELSCOPE OPERATOR Forms Request 12/08/2024 Telephone [facility] at [address] [phone] Yennifer Francisco STEELSCOPE OPERATOR Forms Request 12/04/2024 10:45 AM PICKING MACHINE OPERATOR HELPER Office Visit [facility] at [address] [phone] Ary Abel NP Acute left-sided low back pain without sciatica (Primary Dx); Acute viral syndrome from Last 3 Months Immunizations Immunization Administration Dates Next Due Hep A, Adult 02/25/2024,01/21/2012 Influenza, Quadrivalent, Rec ombinant, Egg Free, Preservative Free, Intramuscular 08/22/2023 Influenza, Quadrivalent, Spl it, Preservative Free, Intramuscular 08/18/2022,08/23/2021,08/12/2019,08/16 Influenza, Trivalent, Preser vative Free, Intramuscular 09/02/2016,07/31/2015 MMR 02/24/2018,01/26/2018 Tdap 11/24/2023,01/25/2016,01/21/2012 Typhoid Inactivated 01/07/2024 Surgical History Surgery Date Site/Laterality Comments CHOLECYSTECTOMY Cholecystectomy TONSILLECTOMY tonsillectomy TUBAL LIGATION Sterilization: L/S bilat. salpingectomy Medical History Medical History Date Comments ; Outco me: [id number] week 7lb(s) 4 oz Female Family History Medical History Relation Name Comments Hyperlipidemia Father Hypertension Father Coronary artery disease Maternal Grandfather Coronary artery disease; Stroke Maternal Grandfather Stroke; Hypertension Mother Hypertension; Obesity Mother Prostate cancer Paternal Grandfather Canc er, prostate; Relation Name Status Comments Father Alive Maternal Grandfather Mother Alive Paternal Grandfather Social History Tobacco Use Types Packs/Day Years [...] on file Legal Sex Female 7:28 PM PICKING MACHINE OPERATOR HELPER Gender Identity Not on file Sexual Orientation Not on file Obstetrics History Para Term AB IAB SAB Ectopic Multiple Livin g Live Births 2 2 2 2 2 Date Outcome GA Total Labor Labor/2nd/3rd Weight Sex Type Anes PTL Vianey A1 A5 Name Clin 09/21 05 Term 39w 0d M Vag-S pont Living 01/19 16 Term 39w 0d 3.289 kg (7 lb 4 oz) F Vag-S pont Epidura l Living Last Filed Vital Signs Vital Sign Reading Time Taken Comments Blood Pressure 125/90 12/04/2024 9:56 AM PICKING MACHINE OPERATOR HELPER Pulse 95 12/04/2024 9:56 AM PICKING MACHINE OPERATOR HELPER Temperature 37.3 C (99.2 F) 12/04/2024 9:56 AM PICKING MACHINE OPERATOR HELPER Respiratory Rate 14 12/04/2024 9:56 AM PICKING MACHINE OPERATOR HELPER Oxygen Saturation 96% 12/04/2024 9:56 AM PICKING MACHINE OPERATOR HELPER Inhaled Oxygen Concentration - - Weight 98.9 kg (218 lb) 12/04/2024 9:56 AM PICKING MACHINE OPERATOR HELPER Height 162.6 cm (5' 4 ) 12/04/2024 9:56 AM PICKING MACHINE OPERATOR HELPER Body Mass Index 37.42 12/04/2024 9:56 AM PICKING MACHINE OPERATOR HELPER Plan of Treatment Health Maintenance Due Date Last Done Comments Colon Cancer Screening-Colonoscopy 1976 Hepatitis B Screening 1994 Pneumococcal vaccine <65 (1 of 2 - PCV) 1995 Cervical Cancer Screening 11/17/20182017, 05/06/2015, 02/07/2013 Covid-19 Vaccine (2023-12 5 season) 2024 10/27/2023, 08/11/2022, 10/30/2021, Additional history exists Lipid Panel 05/10/2025 05/10/2024 eGFR 05/10/2025 05/10/2024 Hemoglobin A1C 05/14/2025 11/14/2024, 07/04, 05/10/2024 Influenza Vaccine (Season Ended) 2025 08/22/2023, 08/18/2022, 08/23/2021, Additional history exists Albumin Creatinine Ratio, Urine 07/28/2025 Depression Screening 07/28/2025 07/28/2024, 04/25/2024, 11/17/2017 Regular Well Visit/Exam 18-64 07/28/2025 07/28/2024, 11/17/2017 Dilated Eye Exam 08/17/2025 08/17/2024 Breast Cancer Screening-Mammogram 11/03/2025 11/03/2024, 11/03/2024, 11/03/2024, Additional history exists Foot Exam 11/14/2025 11/14/2024 DTaP/Tdap/Td Vaccine (4 - Td or Tdap) 11/24/2033 11/24/2023, 01/25/2016, 01/21/2012 Hepatitis C Screening Completed 07/10/2015 , 05/07/2015, 02/08/2013 Procedures Procedure Name Priority Date/Time Associated Diagnosis Comments POC INFLUENZA A/B, COVID-19 ANTIGEN Routine 12/04/2024 10:38 AM PICKING MACHINE OPERATOR HELPER Acute viral syndrome POCT HEMOGLOBIN A1C Routine 11/14/2024 2 :36 PM PICKING MACHINE OPERATOR HELPER Type 2 diabetes mellitus with hyperglycemia, without long-term current use of insulin (HCC) HM DIABETES EYE EXAM Routine 08/17/2024 8:48 AM CDT ALBUMIN CREATININE RATIO, URINE Routine 07/28/2024 3:43 PM CDT Controlled type 2 diabetes mellitus without complication, without long-term current use of insulin (HCC) EGFR Routine 05/10/2024 7:59 AM CDT Prediabetes LIPID PANEL Routine 05/10/2024 7:59 AM CDT Lipid screening THINPREP TOWEL HEMMER PAP (IMAGE GUIDED) LIQUID-BASED PREP Routine 11/17/2017 4:40 PM PICKING MACHINE OPERATOR HELPER SERUM HEPATITIS C AB Routine 07/10/2015 10:16 AM CDT from Last 3 Months or Most Recently Relevant to Health Maintenance Results * POC Influenza A/B, COVID-19 antigen (12/04/2024 10:38 AM PICKING MACHINE OPERATOR HELPER) Influenza A Ag, POC Negative Negative [facility] Influenza B Ag, POC Negative Negative [facility] COVID-19 Ag POC Presumptive Negative Presumptive Negative, Invalid [facility] Nasal 12/04/2024 10:3 8 AM PICKING MACHINE OPERATOR HELPER us Ary Abel STEELSCOPE OPERATOR POINT OF CARE TEST ORDERAB LES Final Result [facility] [address] [place] [address], [facility] * POCT hemoglobin A1c (11/14/2024 2:36 PM PICKING MACHINE OPERATOR HELPER) Pathologist [facility] Hemoglobin A1C, POC 6.9 4.0 - 5.6 % Blood 11/14/2024 2:36 PM PICKING MACHINE OPERATOR HELPER Nick Galeana MD POINT OF CARE TEST ORDERABLES Final Result * (ABNORMAL) DIABETES EYE EXAM (08/17/2024 8:48 AM CDT) Historical Provider HEALTH MAINTENANCE Final Result * Albumin Creatinine Ratio, Urine (07/28/2024 3:43 PM CDT) Pathologist [facility] Albumin Ur <12.0 mg/L Comment: Interpretive Data [...] NP LAB URINE ORDERABLES Final Re sult [facility] [id number] [place] [address] * eGFR (05/10/2024 7:59 AM CDT) Pathologist [facility] eGFR >90 >=60 mL/min/1. 73 m2 Comment: [...] 7:59 AM CDT 05/10/2024 2:41 PM CDT us Yennifer Francisco NP LAB BLOOD ORDERABLES Final Re sult [facility] [address] [place] [address] * Lipid panel (05/10/2024 7:59 AM CDT) [...] revised on 2018. Chol/HDL ratio 3 [facility] Blood 05/10/2024 7:59 AM CDT 05/10/2024 2:37 PM CDT us Yennifer Francisco NP LAB BLOOD ORDERABLES Final Re sult [facility] [address] Department [place] [address] * ThinPrep Gynecologic Pap Test (Image-guided), Liquid-based Preparation (11/17/2017 4:40 PM PICKING MACHINE OPERATOR HELPER) Report status [facility] - Comment:Result canceled by t he ancillary CLINICAL [...] Comment:Result canceled by t he ancillary [facility] - Comment: This Pap test has been evaluated with computer assisted technology. Ladle Watcher [facility] - Comment: MLO, CT(ASCP) CT screening location: [place] [address] [place] [address] Review briquette maker [facility] - Comment:Result canceled by t he ancillary Pathologist [facility] - Comment:Result canceled by t he ancillary 11/17/2017 4:40 PM PICKING MACHINE OPERATOR HELPER 11/18/2017 5:48 AM PICKING MACHINE OPERATOR HELPER Narrative Resulting Agency Comment Performing Organization Information: Site ID: Name: [facility] Address: [facility] [place] [address] Director: Aarti Gonzalez MD us Evelio Patel MD LAB PATHOLOGY ORDERABLES F inal Result [facility] - [place], [place] * Serum Hepatitis C ab (07/10/2015 10:16 AM CDT) HCV ab NON-REACTI VE NON-REACTI VE HISTORICAL RESULTS Hepatitis signal to cutoff ratio 0.02 <1.00 HISTORICAL RESULTS Serum 07/10/2015 10:1 6 AM CDT Narrative HISTORICAL RESULTS - 07/16/2015 10:00 AM CDT Test performed at [facility] [address] [phone] Director: ANAMARIA GARCIA DO,MPH us Historical Provider LAB BLOOD ORDERABLES Marie l Result HISTORICAL RESULTS from Last 3 Months or Most Recently Relevant to Health Maintenance Insurance [facility] Care Teams Litigation Assistant Relationship Specialty Start Date End Date Yennifer Francisco NP PCP - General Family Medicine 04/25/24 Helen Tompkins MD [address] [place] [address] Obstetrics and Gynecology 09/20/24
--- OUTSIDE RECORDS SUMMARY | 2025-02-21 13:24 | XMS_ITS | Data Portability ---
Author Organization [facility] Address [address] [place] [address] Assessment No assessment recorded. Plan of Treatment Reminders Order Date Submit Date Provider Last Modified By Organization Details Last Modified Time Details Appointments None recorded. Lab bordetella pertussis iga Ab, serum 2014 015 [facility], [address] [place] [address], [address], [place], [address], 5 06:35:43 hbcab (hepatitis B core Ab) igm, serum 2014 015 [facility], [address] [place] [address], [address], [place], [address], 5 06:35:44 hbeab (hepatitis B envelope Ab), serum 2014 015 [facility], [address] [place] [address], [address], [place], [address], 5 06:35:45 hepatitis A igm Ab, serum 2014 015 [facility], [address] [place] [address], [address], [place], [address], 5 06:35:45 MMR immunity, serum 2014 015 [facility], [address] [place] [address], [address], [place], [address], 5 06:35:43 varicella-z carrie igg Ab screen, serum 2014 015 [facility], [address] [place] [address], [address], [place], [address], 5 06:35:44 Corynebacte rium diphtheriae Ab , qual serum 2014 015 [facility], [address] [place] [address], [address], [place], [address], 5 16:35:42 hbsab (hepatitis B surface Ab) titer, serum 2014 015 [facility], [address] [place] [address], [address], [place], [address], 5 08:49:12 neisseria meningitidi s A IgG Ab, serum, immunoassay 2014 015 [facility], [address] [place] [address], [address], [place], [address], 5 16:35:43 Referral obstetricia n and gynecologis t referral 2014 015 [email or web address] Evelio Patel, 4 [facility], [address], [address], 5 11:41:33 Procedures None recorded. Surgeries None recorded. Imaging None recorded. Medication Orders None recorded. Patient TargetsNo targets recorded. Patient Instructions Encounter Date Encounter Id Patient Instructions Last Modified By Organization Details Last Modified Time 01/31/2015 [id number] athlete's foot: care instructions [email or web address] Not available 01/31/2015 16:37:44 06/02/2016 [id number] plantar fasciitis: care instructions Not available 06/02/2016 17:25:10 plantar fasciitis: exercises Not available 06/02/2016 17:25:10 Reason for Referral [employer] Operator And Gynecologis t Referral for Intrauterine IUP Referring Physician: Turner Dover, Family Medicine, Encounter Date: 06/21/2015 Results Created Date Observation Date Name Description Value Unit Range Abnormal Flag Note LastModifiedBy Organization Detail LastModifiedTime 06/21/20 15 06/22/2015 MMR immun ity, serum rubeola Ab, IgG 40.1 AU/mL immune >29.9 NEGAT RADHA <25.0 EQUIV OCAL 25.0 - 29.9 POSIT RADHA >29.9 PRESE NCE OF ANTIB ODIES TO RUBEO LA IS PRESU MPTIV E EVIDE NCE OF IMMUN ITY EXCEP T WHEN ACUTE INFEC TION IS SUSPE CTED. Not Available [facility] ([facility]) [address] [place], [address], 06/26/2015 06:35:43 06/21/20 15 06/22/2015 MMR immun ity, serum mumps abs, IgG <9.0 AU/mL immune >10.9 below low normal NEGAT RADHA <9.0 EQUIV OCAL 9.0 - 10.9 POSIT RADHA >10.9 A POSIT RADHA RESUL T GENER ALLY INDIC ATES PAST EXPOS URE TO MUMPS VIRUS OR PREVI OUS VACCI NATIO N. Not Available [facility] ([facility]) [address] [place], [address], 06/26/2015 06:35:43 06/21/20 15 06/23/2015 MMR immun ity, serum rubella antibodies, IgG 1.73 index immune >0.99 NON-I MMUNE <0.90 EQUIV OCAL 0.90 - 0.99 IMMUN E >0.99 Not Available [facility] ([facility]) [address] [place], [address], 06/26/2015 06:35:43 06/21/20 15 06/25/2015 borde tella pertu ssis iga Ab, serum B pertussis IgA Ab <1.0 index 0.0-0. 9 NEGAT RADHA <1.0 BORDE RLINE 1.0 - 1.1 POSIT RADHA >1.1 Not Available [facility] ([facility]) [address] [facility], [place], [address], 06/26/2015 06:35:43 06/21/20 15 06/22/2015 varic arnulfo- zoste r igg Ab scree n, serum varicella zoster IgG 562 index immune >165 NEGAT RADHA <135 EQUIV OCAL 135 - 165 POSIT RADHA >165 A POSIT RADHA RESUL T GENER ALLY INDIC ATES EXPOS URE TO THE PATHO GEN OR ADMIN ISTRA TION OF SPECI FIC IMMUN OGLOB ULINS , BUT IT IS NOT INDIC ATION OF ACTIV E INFEC TION OR STAGE OF DISEA SE. Not Available [facility] ([facility]) [address] [facility], [place], [address], 06/26/2015 06:35:44 06/21/20 15 06/23/2015 hbcab (hepa titis B core Ab) igm, serum hep B core Ab, IgM NEGATI VE negati ve Not Available [facility] ([facility]) [address] [facility], [place], [address], 06/26/2015 06:35:44 06/21/20 15 06/25/2015 hbeab (hepa titis B envel ope Ab), serum hep BE Ab POSITI VE negati ve abnormal JAZMYNE IFIED BY REPEA T ZEINAB SIS Not Available [facility] ([facility]) [address] [facility], [place], [address], 06/26/2015 06:35:45 06/21/20 15 06/23/2015 hepat itis A igm Ab, serum hep A Ab, IgM NEGATI VE negati ve Not Available [facility] ([facility]) [address] [facility], [place], [address], 06/26/2015 06:35:45 06/21/20 15 07/02/2015 Neiss eria menin gitid is vacci ne respo nse, serum N.meningitid is type A IgG 1.3 ug/mL Not Available [facility] ([facility]) [address] [place], [address], 07/02/2015 15:19:59 06/21/20 15 07/02/2015 Neiss eria menin gitid is vacci ne respo nse, serum N.meningitid is type C IgG 0.0 ug/mL Not Available [facility] ([facility]) [address] [place], [address], 07/02/2015 15:19:59 06/21/20 15 07/02/2015 Neiss eria menin gitid is vacci ne respo nse, serum N.meningitid s type Y IgG 0.0 ug/mL Not Available [facility] ([facility]) [address] [place], [address], 07/02/2015 15:19:59 06/21/20 15 07/02/2015 Neiss eria menin gitid is vacci ne respo nse, serum N.meninigiti dis type W-135 IgG 0.0 ug/mL INTER PRETI VE INFOR MATIO N: N. MENIN GITID IS A, C, W-135 AND Y IGG 0.9 UG/ML OR LESS. ..... . ANTIB ANA JUNIOR NTRAT ION NOT PROTE CTIVE . 1.0-2 .0 UG/ML ..... ..... . EQUIV OCAL. 2.1 UG/ML OR GREAT ER... . ANTIB ANA TO NEISS ERIA MENIN GITID ES DETEC DAHLIA. SUGGE STIVE OF PROTE CTION . RESPO NDER STATU S IS DETER MINED ACCOR DING TO THE RATIO OF THE ONE MONTH POST- VACCI NATIO N JUNIOR NTRAT ION TO PRE-V ACCIN ATION JUNIOR NTRAT ION OF IGG ANTIB ODIES TO N. MENIN GITID IS (TYPE S A, C, Y, AND W-135 ) FOLLO WS: 1. IF THE ONE MONTH POST- VACCI NATIO N JUNIOR NTRAT ION IS LESS THAN 3.0 UG/ML , THE PATIE NT IS CONSI DERED TO BE A NON-R ESPON MALLY. 2. IF THE ONE MONTH POST- VACCI NATIO N JUNIOR NTRAT ION IS GREAT ER THAN OR EQUAL TO 3.0 UG/ML , A PATIE NT WITH A RATIO OF GREAT ER THAN OR EQUAL TO 4 IS A GOOD RESPO NDER, A RATIO OF 2-4 IS A WEAK RESPO NDER, AND A RATIO OF LESS THAN 2 IS CONSI DERED A NON-R ESPON MALLY. TEST DEVEL OPED AND KALEE CTERI STICS DETER MINED BY [employer] LABOR ATORI ES. SEE COMPL IANCE STATE MENT B: ARUPL AB.CO M/CS Not Available [facility] ([facility]) [address] [place], [address], 07/02/2015 15:19:59 06/21/20 15 06/26/2015 Clost ridiu m tetan i IgG Ab, quant immun oassa y, serum tetanus antitoxoid IgG Ab 2.30 IU/mL <0.10 INTER PRETA TION: NON-P ROTEC TIVE <0.10 PROTE CTIVE >=0.1 0 RESUL TS FOR THIS TEST ARE FOR RESEA RCH PURPO SES ONLY BY THE ASSAY 'S MANUF ACTUR ER. THE PERFO RMANC E KALEE CTERI STICS OF THIS PRODU CT HAVE NOT BEEN ESTAB LISHE D. RESUL TS SHOUL D NOT BE USED A DIAGN OSTIC PROCE DURE WITHO UT CONFI RMATI ON OF THE DIAGN OSIS BY [facility] ALLY ESTAB LISHE D DIAGN OSTIC PRODU CT OR PROCE DURE. Not Available [facility] ([facility]) [address] [facility], [place], [address], 06/26/2015 15:24:42 06/21/2006/26/2015 Clost ridiu m tetan i IgG Ab, quant immun oassa y, serum diphtheria antitoxoid Ab 1.87 IU/mL <0.10 INTER PRETA TION: NON-P ROTEC TIVE <0.10 PROTE CTIVE >=0.1 0 FOR RESEA RCH USE ONLY. Not Available [facility] ([facility]) [address] [facility], [place], [address], 06/26/2015:24:42 06/21/20 15 06/23/2015 hepat itis B surfa ce Ab, quant itati ve, serum hepatitis B surf Ab quant 989.5 mIU/m L immuni ty>9.9 STATU S OF IMMUN ITY ANTI- HBS LEVEL ----- ----- ----- --- ----- ----- ---- INCON SISTE NT WITH IMMUN ITY 0.0 - 9.9 CONSI STENT WITH IMMUN ITY >9.9 Not Available [facility] ([facility]) [address] [facility], [place], [address], 06/26/2015 15:24:43 06/21/20 15 06/22/2015 mary carmen en autho rizat ion written authorizatio n COMMEN T MARY CARMEN EN AUTHO RIZAT ION RECEI OTTO. AUTHO RIZAT ION RECEI OTTO FROM ORIGI NAL REQUI SITIO N 06-22 LOGGE D BY DEISY LEI EN Not Available [facility] ([facility]) [address] [facility], [place], [address], 06/26/2015 15:24:43 06/21/20 15 06/22/[address] probl em request problem TNP NO FROZE N SERUM RECEI OTTO. TEST: [id number] N.MEN INGIT IDIS A/C/W -135/ Y IGG CONTA CTED ROSA ELENA E YESENIA ERT AT YOUR FACIL ITY 06/22 . Not Available [facility] ([facility]) [address] [facility], [place], [address], 06/26/2015 15:24:44 08/08/20 16 08/08/2016 imagi ng/di bj tic resul t No observ ation record ed. [facility] Not Available 2015 17:45:15 08/08/20 16 08/08/2016 XR, foot No observ ation record ed. [email or web address] (Radiology) [address] [place], [address], 08/08/2016 17:45:31 02/15/20 24 02/15/2024 MAMMO antwan, bilat eral No observ ation record ed. [facility] (Im) [address] [place], [address], 02/16/2024 10:55:09 02/17/20 24 02/15/2024 MAMMO antwan, bilat eral No observ ation record ed. [facility] (Im) [address] [place], [address], 02/17/2024 17:46:51 Result Notes None recorded. Problems Name Problem SNOMED Code Status Onset Date Resolution Date Notes Provider Name and Address Organization Details Recorded Time Tinea pedis 4724325 Active Elda Edward MA null, [place] - [facility] 6 15:55:08 Intrauterine 11934688 Active Elda Edward [place] null, [place] - [facility] 6 15:55:08 Plantar fasciitis 187397453 Active Turner Dover PA-C Attn: Brook godwin,[address] [place], [address] [place] [address] - [facility] 6 11:16:09 Problem Notes None recorded. Procedures Surgical History Date Name Laterality Status Provider Name and Address Organization Details Recorded Time Eye Surgery completed Kirsten Wiley MA [place] - [facility] 01/31/2015 16:09:25 Tonsillectomy completed Kirsten Wiley [place] - [facility] 01/31/2015 16:09:25 Imaging Results Imaging Date Name Status LastModified by [facility] Details LastModified Time 08/08/2016 imaging/diagno stic result completed [facility] Information not available 08/08/2016 17:45:15 08/08/2016 XR, foot completed [facility] (Radiology) [address] [place], [address], 08/08/2016 17:45:31 02/15/2024 MAMMO, screening, bilateral completed [facility] () [address] [place], [address], 02/16/2024 10:55:09 02/15/2024 MAMMO, screening, bilateral completed [facility] (Im) [address] [place], [address], 02/17/2024 17:46:51 Procedure Notes None recorded. Medical Equipment None Reported. Allergies Allergen ID Allergen Name Allergen Category Reaction Reaction Severity Criticality Documentation Date Start Date Code Code System Note Provider Name and Address Organization Details Recorded Time 53688 codeine medicatio n Not available Not available Not available 01/31/2015 2670 RxNorm Not Available Not Available Not Available 78802 Advil medicatio n Not available Not available Not available 01/31/2015 67889 0 RxNorm Not Available Not Available Not Available Medications Not known to be on any medication Vitals Date Recorded Body height Body mass index (BMI) Body weight Systolic blood pressure Diastolic blood pressure Provider Name and Address Organization Details Last Updated DateTime 06/21/2015 162.56 cm 28.9 kg/m2 33359.87 7397 g 110 mm[Hg] 70 mm[Hg] Kirsten Wiley MA [facility] 5 10:05:31 Date Recorded Body height Body weight Body mass index (BMI) Systolic blood pressure Diastolic blood pressure Provider Name and Address Organization Details Last Updated DateTime 06/02/2016 162.56 cm 48832.78 0082 g 28.6 kg/m2 100 mm[Hg] 72 mm[Hg] Elda Edward MA [facility] 6 16:24:57 Date Recorded Body height Body mass index (BMI) Body weight Systolic blood pressure Diastolic blood pressure Provider Name and Address Organization Details Last Updated DateTime 01/31/2015 162.56 cm 27.5 kg/m2 67867.13 8437 g 110 mm[Hg] 70 mm[Hg] Kirsten Wiley MA [facility] 5 16:12:06 Social History None recorded. Functional Status None recorded. Mental Status None recorded. Family History Relationship Description Onset Age of this Age Resolved Age Notes LastModified by Organization Details LastModified Time Mother History of hypertension Not available 0 06/02/2016 15:55:08 Mother Migraine Not availa ble 06/02/2016 15:55:08 Medical History No medical history recorded. Gynecological HistoryNo gynecological history recorded. Obstetrics History GPAL:G 0 P 0 0 0 0 Immunizations Vaccine Type Date Status Note Provider Nam e and Address Organization Details Recorded Time COVID-19 vaccine, vector-nr, rS-Ad26, PF, 0.5 mL 01/30/2021 completed Hayreen Yasmin [facility], [place] - [facility] 04/03/2021 09:31:39 Past Encounters Encounter ID Performer Location Encounter Start Date Encounter Closed Date Diagnosis/Indication Diagnosis SNOMED-CT Code Diagnosis ICD10 Code Diagnosis Note [id number] Aleksandra Baker MA [facility] [address] [place] [address] 01/31/2015 15:52:32 01/31/2015 16:27:20 Tinea pedis 5412376 [id number] [facility] [address] [place] [address] 06/21/2015 09:55:34 06/21/2015 11:41:33 Adult health examination 239960338 Intrauteri ne 01370779 [id number] Turner Dover PA-C [facility] [address] [place] [address] 06/02/2016 15:41:49 06/02/2016 17:14:56 Plantar fasciitis 560602392 M72.2 Health Concerns Section Related Observation LastModified by Organization Detai ls LastModified Time None Recorded Concern Status LastModified by Organization Details LastModified Time None Recorded Advance Directives Directive None Recorded Payers Encounter Date Sequence Insurance Name Policy Number Policy Cote Covered Member ID Cote Member ID Guarantor Name 01/31/2015 1 [place] [facility] [facility] [employer] Alley Merchant [id number] Alley Merchant 06/21/2015 1 [place] [employer] [place] [place] [employer] Alley Merchant [id number] Alley Merchant 06/02/2016 1 [place] [employer] [place] [place] [employer] Alley Merchant [id number] Alley Merchant Notes Date Note Type Note Provider Name and Address Organization Details Recorded Time 01/31/2015 text/html recurrent athlet es foot Turner Dover PA-C Attn: [address] [place], [address], [facility] 01/31/2015 16:24:41 06/21/2015 text/html participation physical. IUP. needs immunization records and titers on any unknown. Turner Dover PA-C Attn: [address] [place], [address], [facility] 06/21/2015 17:02:09 06/02/2016 text/html had a baby 4 mon ths ago. also has plantar fasciitis Turner Dover PA-C Attn: [address] [place], [address], [facility] 06/02/2016 17:04:49 OBGyn Episode No OBEpisode recorded.
== END ==
LOC: ANHLAB 11:28
PROVIDERS: Visit Provider Plastic Surgery
DX: L02.415 Cutaneous abscess of right lower limb (principal)
CPT/HCPCS: 88305